=== PATIENT | male | born 1995 | race Asian ===

== ENCOUNTER → 2016-07-20 | Outpatient (CLI) | payer BC ==
--- NOTE | 2016-07-20 17:04 | DX ---
Right First Finger - 3 Views Indication: Sprained thumb. Fall. Comparison: None. Findings: An incomplete nondisplaced fracture courses through the ulnar base of the distal phalanx. T he fracture plane may extend to the articular surface, however, there is no articular step-off. Joint spaces are well preserved. The remainder of the thumb is normal. Impression: Acute nondisplaced fracture distal phalanx. Comment: The results were called to Con Rod at [facility] at 4:25 p.m. 2016.
== END ==
LOC: BRMIMAGING 15:17
PROVIDERS: ATTEND Physician Assistant
DX: S62.524A Nondisplaced fracture of distal phalanx of right thumb, initial encounter for closed fracture (principal)
CPT/HCPCS: 73140-PO